=== PATIENT | male | born 1985 | race Caucasian/White ===

== ENCOUNTER 2017-03-13 20:14 | Emergency (ER) | payer OTHER ==
[2017-03-13] MEDS: ACETAMINOPHEN 325 MG TAB PO (21:27)
[2017-03-13] MEDS: KETOROLAC 60 MG INJ IM (21:28)
== END 2017-03-13 21:50 | disposition home or self-care (01) ==
LOC: FTE 20:14
DX: R05 Cough (principal); R09.81 Nasal congestion; F17.210 Nicotine dependence, cigarettes, uncomplicated
CPT/HCPCS: 96372; 99284-25